=== PATIENT | female | born 1945 | race Caucasian/White ===

== ENCOUNTER 2019-01-08 11:12 | Emergency (ER) | payer OTHER ==
--- NOTE | 2019-01-08 12:25 | RAD REPORT ---
EXAM DESCRIPTION: RAD - Chest Pa And Lat (2 Views) - 01/08/2019 12:15 pm CLINICAL HISTORY: Cough;Congestion COMPARISON: None. TECHNIQUE: PA and lateral views of the chest were obtained. FINDINGS: The lungs are slightly underinflated on baseline imaging. Minimal bilateral lung base stra nding is believed to be atelectasis or fibrotic change. Acute pneumonia is unlikely. Heart size is normal and central vasculature is within normal limits. No pleural effusion or pneumothorax seen. N o acute bony finding noted. No aortic abnormality. IMPRESSION: Atelectasis versus scarring in each lung base. Acute pneumonia is doubtful.
--- NOTE | 2019-01-08 12:39 | EDPHYS ---
Physician Documentation [facility] Name: Darleen Bass Age: 73 yrs Sex: Female : 1945 Arrival Date: 01/08/2019 Time: 11:15 Bed 11 Private MD: ED Physician Thomas Santizo HPI: 01/08 12:24 This 73 yrs old Female presents to ER via Ambulatory with complaints of kb Cough, Congestion, Fever. 12:24 The patient or guardian reports cough, that is intermittent, described as moderate, kb with no sputum, flu symptoms, arthralgias, low-grade fever, myalgias. Onset: The symptoms/episode began/occurred yesterday. Severity of symptoms: At their worst the symptoms were moderate, in the emergency department the symptoms are unchanged. Modifying factors: The symptoms are alleviated by nothing, the symptoms are aggravated by nothing. Associated signs and symptoms: Pertinent positives: fever, Pertinent negatives: chest pain, diarrhea, ear ache, nausea, rhinorrhea, sore throat, vomiting. The patient has not experienced similar symptoms in the past. The patient has not recently seen a physician. Pt reports dry cough, congestion and fever since yesterday. Historical: - Allergies: 11:23 PENICILLINS; hb 11:23 Sulfa (Sulfonamide Antibiotics); hb 11:23 Dolobid; hb - Immunization history:: Adult Immunizations up to date. - Social history:: Smoking status: Patient/guardian denies using tobacco. - Ebola Screening: : No symptoms or risks identified at this time. ROS: 12:23 ENT: Negative for injury, pain, and discharge, Neck: Negative for injury, pain, and kb swelling, Cardiovascular: Negative for chest pain, palpitations, and edema, Abdomen/GI: Negative for abdominal pain, nausea, vomiting, diarrhea, and constipation, Back: Negative for injury and pain, MS/Extremity: Negative for injury and deformity, Skin: Negative for injury, rash, and discoloration, Neuro: Negative for headache, weakness, numbness, tingling, and seizure. 12:23 Constitutional: Positive for fever. 12:23 Respiratory: Positive for cough. Exam: 12:23 Constitutional: This is a well developed, well nourished patient who is awake, alert, kb and in no acute distress. Head/Face: Normocephalic, atraumatic. ENT: Nares patent. No nasal discharge, no septal abnormalities noted. Tympanic membranes are normal and external auditory canals are clear. Oropharynx with no redness, swelling, or masses, exudates, or evidence of obstruction, uvula midline. Mucous membranes moist. Neck: Trachea midline, no thyromegaly or masses palpated, and no cervical lymphadenopathy. Supple, full range of motion without nuchal rigidity, or vertebral point tenderness. No Meningismus. Chest/axilla: Normal chest wall appearance and motion. Nontender with no deformity. No lesions are appreciated. Cardiovascular: Regular rate and rhythm with a normal S1 and S2. No gallops, murmurs, or rubs. Normal PMI, no JVD. No pulse deficits. Respiratory: Lungs have equal breath sounds bilaterally, clear to auscultation and percussion. No rales, rhonchi or wheezes noted. No increased work of breathing, no retractions or nasal flaring. Abdomen/GI: Soft, non-tender, with normal bowel sounds. No distension or tympany. No guarding or rebound. No evidence of tenderness throughout. Back: No spinal tenderness. No costovertebral tenderness. Full range of motion. Skin: Warm, dry with normal turgor. Normal color with no rashes, no lesions, and no evidence of cellulitis. MS/ Extremity: Pulses equal, no cyanosis. Neurovascular intact. Full, normal range of motion. Neuro: Awake and alert, GCS 15, oriented to person, place, time, and situation. Cranial nerves II-XII grossly intact. Motor strength 5/5 in all extremities. Sensory grossly intact. Cerebellar exam normal. Normal gait. Vital Signs: 11:21 BP 131 / 67; Pulse 67; Resp 16; Temp 99.1; Pulse Ox 96% on R/A; Weight 70.31 kg; Height hb 5 ft. 2 in. (157.48 cm); Pain 2/10; 11:21 Body Mass Index 28.35 (70.31 kg, 157.48 cm) hb MDM: 11:31 Patient medically screened. kb 12:23 Data reviewed: vital signs, nurses notes. Data interpreted: Pulse oximetry: on room air kb is 96 %. Interpretation: normal. 12:38 Counseling: I had a detailed discussion with the patient and/or guardian regarding: the kb historical points, exam findings, and any diagnostic results supporting the discharge/admit diagnosis, lab results, radiology results, the need for outpatient follow up, a family practitioner, to return to the emergency department if symptoms worsen or persist or if there are any questions or concerns that arise at home. 01/08 11:23 Order name: Flu; Complete Time: 11:57 kb 01/08 11:23 Order name: Strep; Complete Time: 11:57 kb 01/08 11:39 Order name: Chest Pa And Lat (2 Views) XRAY; Complete Time: 12:38 kb 01/08 12:11 Order name: Throat Culture EDMS Administered Medications: No medications were administered Disposition: 01/09 09:18 Co-signature as Attending Physician, Thomas Santizo MD I agree with the assessment and kdr plan of care. Disposition: 01/08/19 12:38 Discharged to Home. Impression: Acute upper respiratory infection, unspecified. - Condition is Stable. - Discharge Instructions: Upper Respiratory Infection, Adult, [id number], Viral Respiratory Infection, [id number]. - Medication Reconciliation Form, Thank You Letter, Antibiotic Education, Prescription Opioid Use form. - Follow up: Emergency Department; When: As needed; Reason: Worsening of condition. Follow up: Private Physician; When: 2 - 3 days; Reason: Recheck today's complaints, Continuance of care, Re-evaluation by your physician. Signatures: Dispatcher [employer] EDWY Gila Reveles, SANDRA-C HEMODIALYSIS TECHNICIAN-Ckb Thomas Santizo MD MD [facility] Dominga Jaramillo RN RN Reny Houston RN RN Corrections: (The following items were deleted from the chart) 01/08 13:09 12:38 01/08/2019 12:38 Discharged to Home. Impression: Acute upper respiratory iw infection, unspecified. Condition is Stable. Forms are Medication Reconciliation Form, Thank You Letter, Antibiotic Education, Prescription Opioid Use. Follow up: Emergency Department; When: As needed; Reason: Worsening of condition. Follow up: Private Physician; When: 2 - 3 days; Reason: Recheck today's complaints, Continuance of care, Re-evaluation by your physician. kb
--- NOTE | 2019-01-08 12:39 | ER ---
Nurse's Notes [facility] Name: Darleen Bass Age: 73 yrs Sex: Female : 1945 Arrival Date: 01/08/2019 Time: 11:15 Bed 11 Private MD: Diagnosis: Acute upper respiratory infection, unspecified Presentation: 01/08 11:21 Presenting complaint: Nonproductive cough, headache, and subjective fever x 2 days. hb Transition of care: patient was not received from another setting of care. Onset of symptoms was January 07, 2019. Risk Assessment: Do you want to hurt yourself or someone else? Patient reports no desire to harm self or others. Initial Sepsis Screen: Does the patient meet any 2 criteria? No. Patient's initial sepsis screen is negative. Does the patient have a suspected source of infection? No. Patient's initial sepsis screen is negative. Care prior to arrival: Medication(s) given: OTC Cold and Flu at 0900. 11:21 Method Of Arrival: Ambulatory hb 11:21 Acuity: ALEJANDRO 4 hb Triage Assessment: 11:23 General: Appears in no apparent distress. Behavior is calm, cooperative. Pain: Pain hb currently is 2 out of 10 on a pain scale. Neuro: Level of Consciousness is awake, alert, obeys commands, Oriented to person, place, time, situation. Cardiovascular: Capillary refill < 3 seconds Patient's skin is warm and dry. Respiratory: Reports cough that is non-productive, Airway is patent Respiratory effort is even, unlabored, Respiratory pattern is regular, symmetrical. Historical: - Allergies: 11:23 PENICILLINS; hb 11:23 Sulfa (Sulfonamide Antibiotics); hb 11:23 Dolobid; hb - Immunization history:: Adult Immunizations up to date. - Social history:: Smoking status: Patient/guardian denies using tobacco. - Ebola Screening: : No symptoms or risks identified at this time. Screenin:46 Abuse screen: Denies threats or abuse. Denies injuries from another. Nutritional hb screening: No deficits noted. Tuberculosis screening: No symptoms or risk factors identified. Fall Risk None identified. Assessment: 11:30 General: see triage assessment. hb Vital Signs: 11:21 BP 131 / 67; Pulse 67; Resp 16; Temp 99.1; Pulse Ox 96% on R/A; Weight 70.31 kg; Height hb 5 ft. 2 in. (157.48 cm); Pain 2/10; 11:21 Body Mass Index 28.35 (70.31 kg, 157.48 cm) hb ED Course: 11:15 Patient arrived in ED. mr 11:18 Gila Reveles FNP-C [facility]. kb 11:18 Thomas Santizo MD is Attending Physician. kb 11:22 Triage completed. hb 11:23 Arm band placed on. hb 11:28 Strep Sent. hb 11:28 Flu Sent. hb 11:30 Patient has correct armband on for positive identification. Call light in reach. hb 11:42 Dominga Jaramillo, RN is Primary Nurse. iw 12:19 Chest Pa And Lat (2 Views) XRAY In Process Unspecified. EDMS 13:05 No provider procedures requiring assistance completed. Patient did not have IV access iw during this emergency room visit. Administered Medications: No medications were administered Outcome: 12:38 Discharge ordered by MD. kb 13:08 Discharged to home ambulatory. iw 13:08 Condition: good 13:08 Discharge instructions given to patient. 13:09 Patient left the ED. iw Signatures: Dispatcher [employer] EDMS Gila Reveles FNP-C FNP-Laureen Chapito Magdalena mr Dominga Jaramillo, RN RN iw Reny Houston, RN RN hb
[2019-01-08 13:31] VITALS: BP 131/67; TEMP 99.1; O2SAT 96
== END 2019-01-08 13:09 | disposition home or self-care (01) ==
LOC: ER 11:12
DX: J06.9 Acute upper respiratory infection, unspecified (principal); Z88.0 Allergy status to penicillin; Z88.2 Allergy status to sulfonamides; Z88.8 Allergy status to other drugs, medicaments and biological substances
CPT/HCPCS: 71046; 87070; 87081; 87804; 99283